=== PATIENT | male | born 1950 | race Caucasian/White ===

== ENCOUNTER → 2016-09-21 | Outpatient (CLI) | payer MEDICAID ==
[~2016-09-21] MED LIST: HYDR-3516 PO; IBUP-232 PO; LOSA50TA PO; MECL25CH CHEW; PANT40TA3 PO
[2016-09-21 12:59] LABS: AUTOMATED NEUTROPHIL # 3.8 TH/MM3 (1.8-7.7); BASOPHIL % 0.6 % (0.0-2.0); EOSINOPHIL # 0.4 TH/MM3 (0-0.4); EOSINOPHIL % 5.6 % (0.0-4.0); HEMO FLAGS DIFF FINAL; LYMPH % 30.1 % (9.0-44.0); LYMPHOCYTE # 2.2 TH/MM3 (1.0-4.8); MEAN CELL VOLUME 82.3 FL (80.0-100.0); MEAN CORPUSCULAR HEMOGLOBIN 28.1 PG (27.0-34.0); MEAN CORPUSCULAR HGB CONC 34.1 % (32.0-36.0); MONO % 9.6 % (0.0-8.0); NEUT % 54.1 % (16.0-70.0); PLATELET COUNT 210 TH/MM3 (150-450); RED BLOOD COUNT 4.99 MIL/MM3 (4.50-5.90); RED CELL DISTRIBUTION WIDTH 13.9 % (11.6-17.2); WHITE BLOOD COUNT 7.2 TH/MM3 (4.0-11.0)
== END ==
LOC: PHPRE 11:55
PROVIDERS: ATTEND Orthopaedic Surgery
DX: Z01.812 Encounter for preprocedural laboratory examination (principal)
CPT/HCPCS: 85025

== ENCOUNTER → 2016-10-01 | Day surgery (SDC) | payer MEDICAID ==
[~2016-10-01] VITALS: Ht 190.5 cm; Wt 112.2 kg
[~2016-10-01] MED LIST changes: +BUPIVACAINE HCL PF 0.5% 30 ML VIAL NERV BLOCK ONE; +BUPIVACAINE/EPINEPHRINE 0.5% PF 30 ML VIAL ONE; +FAMOTIDINE 20 MG/2 ML VIAL ONE; -HYDR-3516 PO; +LACTATED RINGER'S 1000 ML INJ 1,000 ML ONE; +MIDAZOLAM HCL 5 MG/ML VIAL (1 ML) ONE; +ONDANSETRON HCL 4 MG/2 ML VIAL IV PUSH ONE; +PHENYLEPH/NS 1000 MCG/10 ML SYR IV ONE; +PROPOFOL 200 MG/20 ML AMP IV ONE; +SODIUM CHLOR 0.9% 250 ML INJ 250 ML ONE; +VANCOMYCIN HCL 1000 MG VIAL ONE; +ceFAZolin 2 GM PREMIX 50 ML ONE; +ePHEDrine/NS 25 MG/5 ML SYR IV ONE; +fentaNYL CITRATE 250 MCG/5 ML AMP ONE
[2016-10-01 06:42] VITALS: BP 145/84; PULSE 62; RESP 16; TEMP 97.7; O2SAT 96
[2016-10-01 06:47] VITALS: PULSE 62
[2016-10-01 07:50] VITALS: PULSE 68
[2016-10-01 10:20] VITALS: PULSE 90
[2016-10-01 10:57] VITALS: PULSE 79; TEMP 97.5
[2016-10-01 11:30] VITALS: BP 129/77; PULSE 77; RESP 18; O2SAT 94
--- NOTE | 2016-10-03 17:31 | MP ---
cc: JACK ONOFRE M.D. DATE OF SURGERY October 01, 2016 SURGEON Jack Onofre MD PREOPERATIVE DIAGNOSIS Rotator cuff tear. Jack Onofre MD LILIAN/KK /10:08 AM /5:27 PM
--- NOTE | 2016-10-03 17:35 | MP ---
cc: JACK ONOFRE M.D. DATE OF SURGERY: 10/03/2016. PREOPERATIVE DIAGNOSIS: Tear of the rotator cuff of the left shoulder. POSTOPERATIVE DIAGNOSIS: Tear of the rotator cuff of the left shoulder with arthritis left acromioclavicular joint and impingement syndrome. OPERATIVE PROCEDURE PERFORMED: 1. Anterior decompression with repair of chronic rotator cuff tear fully avulsed. 2. Distal claviculectomy. SURGEON: Jack Onofre MD. DESCRIPTION OF THE PROCEDURE IN DETAIL: The patient was placed on the operating table in supine position. Adequate general anesthesia was administered by the anesthesiologist. The patient's left shoulder was then prepped and draped in the usual sterile fashion and placed in a beach-chair position. After a time-out was called, a local infiltration of 0.5% Marcaine with epinephrine was instilled using only 2 to 3 cc; this allowed for better hemostasis. The superior anterior incision was made and extended for approximately 1 inch in length. The wound was taken down to subcutaneous tissues and bleeding points were electrocauterized. The deep fascia was incised along with the insertion of the anterior portion of the deltoid onto the anterior border of the acromial process and distal acromioclavicular joint at the level of the distal clavicle. We were able to then initially perform a partial claviculectomy but for complete clavicle resection of the distal end, it did require some additional acromioplasty. This acromioplasty was performed with a high-speed power bur removing also soft tissue and inflamed subdeltoid bursa. The remainder of the distal clavicle was then removed and did measure greater than 1 cm. The wound was thoroughly irrigated of any bony fragments and none were encountered. The rotator cuff was now fully visualized by rotating the shoulder and there did appear to be an obvious severe large defect with some of it however still attached to the greater tuberosity. We were able to do a repair of the longitudinal defect utilizing a multiple variety of #2 FiberWire, a double row type closure was therefore performed until a water-tight closure was obtained. We were able to approximate at least 90% to 95% of the rotator cuff. After repeat irrigation, the subacromial space was once again irrigated copiously. The deltoid muscle was reinserted with #1 TiCron. The subcutaneous tissue was closed with running simple 2-0 Vicryl and the skin edges were approximated with a running 4-0 subcuticular suture. Sponge count, needle counts and instrument counts were correct x2. The estimated blood loss was minimal. The procedure was tolerated well and the patient went to the recovery room in satisfactory condition. MD LILIAN Contreras/EDGAR /10:09 AM /5:27 PM
== END | disposition home or self-care (01) ==
LOC: PHSDC 06:21
PROVIDERS: ATTEND Orthopaedic Surgery
DX: M75.122 Complete rotator cuff tear or rupture of left shoulder, not specified as traumatic (principal); M75.42 Impingement syndrome of left shoulder; M19.012 Primary osteoarthritis, left shoulder; I10 Essential (primary) hypertension
CPT/HCPCS: 01610; 23120; 23412; 64415; C1713; J0690; J2250; J2370; J2405; J3010; J3370; J7050; J7120

== ENCOUNTER 2017-03-30 09:25 | Day surgery (SDC) | payer OTHER ==
[~2017-03-30 09:25] MED LIST changes: -BUPIVACAINE HCL PF 0.5% 30 ML VIAL NERV BLOCK ONE; -BUPIVACAINE/EPINEPHRINE 0.5% PF 30 ML VIAL ONE; -FAMOTIDINE 20 MG/2 ML VIAL ONE; -LACTATED RINGER'S 1000 ML INJ 1,000 ML ONE; -MIDAZOLAM HCL 5 MG/ML VIAL (1 ML) ONE; -ONDANSETRON HCL 4 MG/2 ML VIAL IV PUSH ONE; -PHENYLEPH/NS 1000 MCG/10 ML SYR IV ONE; -PROPOFOL 200 MG/20 ML AMP IV ONE; -SODIUM CHLOR 0.9% 250 ML INJ 250 ML ONE; -VANCOMYCIN HCL 1000 MG VIAL ONE; -ceFAZolin 2 GM PREMIX 50 ML ONE; -ePHEDrine/NS 25 MG/5 ML SYR IV ONE; -fentaNYL CITRATE 250 MCG/5 ML AMP ONE
[2017-03-30 10:06] VITALS: BP 148/79; PULSE 62; RESP 20; TEMP 97.8; O2SAT 94
[2017-03-30] MEDS ORDERED: LIDOCAINE HCL 1% 20 ML VIAL ONE (11:00)
--- NOTE | 2017-03-30 11:57 | RADRPT ---
EXAM DATE/TIME: 03/30/2017 10:04 [facility] COMPARISON: No previous studies available for comparison. INDICATIONS : 66-year-old male with history of waxing and waning left parotid enlargement. Outside CT examination d emonstrates nodularity of the left parotid gland most consistent with parotid lymph nodes. Patient pr esents for image guided biopsy. MEDICAL HISTORY : Hypertension. Sleep apnea. Enlarged left parotid glands. SURGICAL HISTORY : Tonsillectomy. Sinus surgery. Nasal septoplasty. Bilateral rotator cuff surgery. Bilateral ulnar ne rve transposition. ENCOUNTER: Initial ACUITY: > 1 yr PAIN SCORE: 1/10 LOCATION: Left neck ORGAN: Left parotid gland SPECIMENS: Four core specimen(s) submitted for pathologic evaluation. DEVICE: 20 gauge Temno needle Post procedure scanning reveals no hematoma or other complication. The possibility does exist that the tissue obtained will be non-diagnostic. If the sample is non-yamileth gnostic a repeat biopsy or surgical biopsy may need to be performed. TECHNIQUE: 1. Ultrasound guidance for needle biopsy. 2. Needle biopsy. The risks, benefits and alternatives to the procedure were explained and verbal and written consent w as obtained. The site was prepped in sterile fashion. Full sterile technique was used, including ca p, mask, sterile gloves and gown and a large sterile sheet. Hand hygiene and 2% chlorhexidine and/or betadine/alcohol prep was utilized per protocol for cutaneous antisepsis. The skin and subcutaneous tissues were infiltrated with local anesthetic solution. Sterile gel and sterile probe cover were u tilized for ultrasound guidance. With the patient on the ultrasound table, images were obtained. This again demonstrates 3 separate s ubcentimeter masses in the prominent gland with the largest measuring up to 8 mm. These masses demons trate central echogenicity and have characteristic appearance of lymph nodes. Patient requested biops y following an extended conversation. A 20 gauge Temno biopsy needle was advanced into the identified target and the number of specimens as above obtained and submitted for pathologic evaluation. The patient tolerated the procedure well and left the ultrasound suite in stable condition. CONCLUSION: Uncomplicated ultrasound guided needle biopsy. Diaz Hernandez MD on March 30, 2017 at 11:53 Board Certified Radiologist. This report was verified electronically.
== END 2017-03-30 12:30 | disposition home or self-care (01) ==
LOC: HRAD 09:25 → HRIP 09:26 → HRAD 12:30
PROVIDERS: ATTEND Otolaryngology Otolaryngology/Facial Plastic Surgery
DX: R59.0 Localized enlarged lymph nodes (principal); I10 Essential (primary) hypertension
CPT/HCPCS: 42400; 76942; 88184; 88185; 88305